=== PATIENT | female | born 1960 | race Caucasian/White ===

== ENCOUNTER 2017-08-18 18:04 | Emergency (ER) | payer OTHER ==
[2017-08-18 18:19] VITALS: BP 113/71; PULSE 93; TEMP 98.7; BMI 21.4
--- NOTE | 2017-08-18 18:29 | PDOC ---
History of Present Illness - General History Source: Patient Exam Limitations: No Limitations - History of Present Illness Initial Comments: 08/18/17 18:39 The patient is a 57 year old female, with a significant past medical history of UTI, Chronic back pain, bipolar, anxiety, depression, and psoriasis, who presents to the emergency department with urgency, frequency, fever and abdominal pain for the past month. She describes her abdominal pain as ranging from mild to moderate, without radiation or modifying factors. She states that her last UTI was roughly 1 year ago. She reports that she has been taking AZO urinary relief medication during this time frame with some alleviation of the symptoms. She states that her urine output is minimal and usually once every 30- 60 minutes. She describes her abdominal pain as constant and localized in the suprapubic region, rating it a 6/10 in severity, without radiation or modifying factors. She states that her last sexual intercourse was 8 months ago. She notes that her fever was as high as 101.5 degrees F. She also reports a headache since yesterday for which she took 3 Motrin pills, which relieved her pain. The patient denies chest pain, shortness of breath, headache and dizziness. Denies chills, nausea, vomit, diarrhea and constipation. She denies any vaginal discharge. LMP: 2-3 years ago Allergies: Penicillin Past surgical history: None reported Social history: Former smoker ( pack daily, quit 11 years ago). No alcohol or drug use reported <Michael Trujillo - Last Filed: 08/18/17 19:00> <Donn Angeles - Last Filed: 08/25/17 09:04> - General Chief Complaint: Urinary Problem Stated Complaint: URINARY SYMPTOMS Time Seen by Provider: 08/18/17 18:23 Past History <Michael Trujillo - Last Filed: 08/18/17 19:00> - Past Medical History Psychiatric Problems: Yes (ANXIETY,DEPRESSION,BIPOLAR) Other medical history: PSORIASIS - Suicide/Smoking/Psychosocial Hx Smoking History: Never smoked Hx Alcohol Use: No Drug/Substance Use Hx: No Substance Use Type: None <Donn Angeles - Last Filed: 08/25/17 09:04> - Past Medical History Allergies/Adverse Reactions: Allergies Allergy/AdvReac Type Severity Reaction Status Date / Time Penicillins Allergy Mild Rash Verified 08/18/17 18:25 Home Medications: Ambulatory Orders Clonazepam [Klonopin] 0 mg PO ASDIR 08/18/17 Dextroamphetamine/Amphetamine [Adderall 10 mg Tablet] 10 mg PO ASDIR 08/18/17 Lamotrigine [Lamictal] 0 mg PO ASDIR 08/18/17 Nitrofurantoin Monohyd/M-Cryst [Macrobid -] 100 mg PO BID #14 capsule 08/18/17 Phenazopyridine HCl [Pyridium] 100 mg PO TID #6 tablet 08/18/17 Secukinumab [Cosentyx Pen] 0 mg SQ ASDIR 08/18/17 Zonisamide 100 mg PO TID 08/18/17 Review of Systems - Review of Systems Able to Perform ROS?: Yes Comments:: 08/18/17 18:39 GENERAL/CONSTITUTIONAL: No fever or chills. No weakness. HEAD, EYES, EARS, NOSE AND THROAT: No change in vision. No ear pain or discharge. No sore throat.- CARDIOVASCULAR: No chest pain or shortness of breath RESPIRATORY: No cough, wheezing, or hemoptysis. GASTROINTESTINAL: (+) Abdominal pain. No nausea, vomiting, diarrhea or constipation. GENITOURINARY: (+) Urgency and frequency. MUSCULOSKELETAL: No joint or muscle swelling or pain. No neck or back pain. SKIN: No rash NEUROLOGIC: (+) Headache. No vertigo, loss of consciousness, or change in strength/sensation. ENDOCRINE: No increased thirst. No abnormal weight change HEMATOLOGIC/LYMPHATIC: No anemia, easy bleeding, or history of blood clots. ALLERGIC/IMMUNOLOGIC: No hives or skin allergy. <Michael Trujillo - Last Filed: 08/18/17 19:00> *Physical Exam - Vital Signs Last Vital Signs Temp Pulse Resp BP Pulse Ox 98.7 F 93 H 18 113/71 98 08/18/17 18:05 08/18/17 18:05 08/18/17 18:05 08/18/17 18:05 08/18/17 18:05 - Physical Exam Comments: 08/18/17 18:40 GENERAL: Awake, alert, and fully oriented, in no acute distress HEAD: No signs of trauma, normocephalic, atraumatic EYES: PERRLA, EOMI, sclera anicteric, conjunctiva clear ENT: Auricles normal inspection, hearing grossly normal, nares patent, oropharynx clear without exudates. Moist mucosa NECK: Normal ROM, supple, no lymphadenopathy, JVD, or masses LUNGS: No distress, speaks full sentences, clear to auscultation bilaterally HEART: Regular rate and rhythm, normal S1 and S2, no murmurs, rubs or gallops, peripheral pulses normal and equal bilaterally. ABDOMEN: Soft, nontender, normoactive bowel sounds. No guarding, no rebound. No masses EXTREMITIES : Normal inspection, Normal range of motion, no edema. No clubbing or cyanosis. NEUROLOGICAL: Cranial nerves II through XII grossly intact. Normal speech, normal gait, no focal sensorimotor deficits SKIN: Warm, Dry, normal turgor, no rashes or lesions noted. <Michael Trujillo - Last Filed: 08/18/17 19:00> - Vital Signs Last Vital Signs Temp Pulse Resp BP Pulse Ox 98.7 F 93 H 18 113/71 98 08/18/17 18:05 08/18/17 18:05 08/18/17 18:05 08/18/17 18:05 08/18/17 18:05 <Donn Angeles - Last Filed: 08/25/17 09:04> ED Treatment Course - LABORATORY CBC & Chemistry Diagram: 08/18/17 19:44 08/18/17 19:44 <Donn Angeles - Last Filed: 08/25/17 09:04> Medical Decision Making - Medical Decision Making 08/18/17 18:52 Patient complaining of "urinary symptoms" which consists mainly of urgency, frequency, and decreased volumes of urine. There is no dysuria, suprapubic or back pain. Symptoms have been persistent for over a month without medical evaluation. She has been self treating with Pyridium with partial relief. Symptoms are most consistent with atrophic vaginitis in a perimenopausal female. Other possibilities include overactive bladder, interstitial cystitis, UTI, other forms of vaginitis including yeast, Trichomonas, and bacterial. Urinalysis and urine culture should help to clarify. Signed out to Dr. Mayo pending results of urinalysis, further diagnosis and treatment. 7 PM. <Donn Angeles - Last Filed: 08/25/17 09:04> *DC/Admit/Observation/Transfer - Attestations Scribe Attestion: 08/18/17 18:40 Documentation prepared by Michael Trujillo, acting as medical research associate for Donn Stephens MD <Michael Trujillo - Last Filed: 08/18/17 19:00> <Donn Angeles - Last Filed: 08/25/17 09:04> Diagnosis at time of Disposition: Cystitis - Discharge Dispostion Disposition: HOME Condition at time of disposition: Stable - Prescriptions Prescriptions: Nitrofurantoin Monohyd/M-Cryst [Macrobid -] 100 mg PO BID #14 capsule Phenazopyridine HCl [Pyridium] 100 mg PO TID #6 tablet - Patient Instructions Additional Instructions: For the urinary tract infection take Macrobid 1 tablet twice a day for 7 days. For the symptoms take Pyridium 1 tablet 3 times a day for 2 days. Stay well hydrated. Return to the emergency department immediately with ANY new, persistent or worsening symptoms. Continue any medications as previously prescribed by your physician. You should follow up with your primary doctor as soon as possible regarding today's emergency department visit. . Please make sure your doctor reviews the results of your emergency evaluation. Thank you for coming to the Emergency Department today for your care. It was a pleasure to see you today. Please note that your evaluation is INCOMPLETE until you follow-up with your doctor.
[2017-08-18 18:59] LABS: PH,URINE 5.5 (4.5-8); URINE BILIRUBIN Negative (NEGATIVE); URINE GLUCOSE (UA) Negative (NEGATIVE); URINE KETONE Negative (NEGATIVE); URINE NITRITE Negative (NEGATIVE); URINE UROBILINOGEN 0.2 (0.2-1.0)
[2017-08-18 19:07] LABS: URINE BLOOD 1+ (NEGATIVE); URINE COLOR YELLOW; URINE LEUK ESTERASE 2+ (NEGATIVE); URINE PROTEIN 2+ (NEGATIVE)
[2017-08-18 19:08] LABS: URINE APPEARANCE CLOUDY
[2017-08-18] MEDS ORDERED: SODIUM CHLORIDE 1,000 ML IV ONE (19:24)
--- NOTE | 2017-08-18 19:34 | PDOC ---
*Physical Exam - Vital Signs Last Vital Signs Temp Pulse Resp BP Pulse Ox 98.7 F 93 H 18 113/71 98 08/18/17 18:05 08/18/17 18:05 08/18/17 18:05 08/18/17 18:05 08/18/17 18:05 ED Treatment Course - LABORATORY CBC & Chemistry Diagram: 08/18/17 19:44 08/18/17 19:44 - ADDITIONAL ORDERS Additional order review: Laboratory Results 08/18/17 18:30 Urine Color Yellow Urine Appearance Cloudy Urine pH 5.5 Ur Specific [place] 1.015 Urine Protein 2+ H Urine Glucose (UA) Negative Urine Ketones Negative Urine Blood 1+ H Urine Nitrite Negative Urine Bilirubin Negative Urine Urobilinogen 0.2 - RADIOLOGY Radiology Studies Ordered: Category Date Time Status ABDOMEN & PELVIS CT W/O CONTR [CT] Stat CT Scan 08/18/17 19:24 Ordered Progress Note - Progress Note Progress Note: Care of this patient was transferred to [place] from Dr. Santos at 1900 hrs. This is a 57-year-old female who comes in complaining of urinary dysuria and frequency. Patient said symptoms of been persistent times a couple of months. Patient does not have a primary care doctor or a [employer] as her doctors that she had does not take her insurance anymore. Patient had a urinalysis that does show a urinary tract infection however there is a slight component to it so I didn't get a CAT scan and labs to rule out a kidney stone and pyelonephritis. A pelvic exam was also done which shows normal vaginal mucosa and no evidence of atrophic vaginitis. Patient was treated with Macrobid and Pyridium for the cystitis. *DC/Admit/Observation/Transfer Diagnosis at time of Disposition: Cystitis - Discharge Dispostion Disposition: HOME Condition at time of disposition: Stable Admit: No - Prescriptions Prescriptions: Nitrofurantoin Monohyd/M-Cryst [Macrobid -] 100 mg PO BID #14 capsule Phenazopyridine HCl [Pyridium] 100 mg PO TID #6 tablet - Patient Instructions Additional Instructions: For the urinary tract infection take Macrobid 1 tablet twice a day for 7 days. For the symptoms take Pyridium 1 tablet 3 times a day for 2 days. Stay well hydrated. Return to the emergency department immediately with ANY new, persistent or worsening symptoms. Continue any medications as previously prescribed by your physician. You should follow up with your primary doctor as soon as possible regarding today's emergency department visit. . Please make sure your doctor reviews the results of your emergency evaluation. Thank you for coming to the Emergency Department today for your care. It was a pleasure to see you today. Please note that your evaluation is INCOMPLETE until you follow-up with your doctor.
[2017-08-18 19:35] LABS: URINE BACTERIA MANY /hpf (NEGATIVE); URINE WBC MANY (3-5)
[2017-08-18 19:55] LABS: BASOPHIL 1.3 % (0-2.0); EOSINOPHIL 0.2 % (0-4.5); MCH 27.6 pg (25.7-33.7); MCHC 34.3 g/dl (32.0-36.0); MEAN CELL VOLUME 80.5 fl (80-96); MEAN PLT VOLUME 8.8 fl (7.5-11.1); NEUTROPHILS 80.2 % (42.8-82.8); PLATELET COUNT 357 K/MM3 (134-434); RDW 13.7 % (11.6-15.6); WHITE BLOOD COUNT 8.9 K/mm3 (4.0-10.8)
[2017-08-18 20:08] LABS: ALBUMIN 4.2 g/dl (3.5-5.0); ALK PHOS 58 U/L (32-92); ANION GAP 7 (8-16); BILIRUBIN,TOTAL 0.6 mg/dl (0.2-1.0); CALCIUM 8.8 mg/dl (8.4-10.2); CO2 22 mmol/L (22-28); CREATININE 1.2 mg/dl (0.6-1.3); GLUCOSE,RANDOM 95 mg/dl (74-106); SGOT/AST 16 U/L (10-42); SGPT/ALT 9 U/L (10-40); TOT PROT 7.3 g/dl (6.4-8.3)
[2017-08-18] MEDS ORDERED: PHENAZOPYRIDINE HCL 100 MG TABLET (FP) PO ONE (21:11)
[2017-08-18] MEDS ORDERED: PHENAZOPYRIDINE HCL 100 MG TABLET (FP) ONE (21:13)
[2017-08-18] MEDS ORDERED: NITROFURANTOIN MACROCRYSTAL 50 MG CAPSULE (FP) PO SCH (21:15)
[2017-08-18] MEDS ORDERED: NITROFURANTOIN MACROCRYSTAL 50 MG CAPSULE (FP) ONE (21:19)
== END 2017-08-18 21:35 | disposition home or self-care (01) ==
LOC: FER 18:04
PROC: 3E0F7GC Introduction of Other Therapeutic Substance into Respiratory Tract, Via Natural or Artificial Opening (ICD-10-PCS; principal; 2017-08-18)
DX: R10.9 Unspecified abdominal pain (principal); N30.90 Cystitis, unspecified without hematuria; G89.29 Other chronic pain; F31.9 Bipolar disorder, unspecified; F41.8 Other specified anxiety disorders
CPT/HCPCS: 36415; 74176-TC; 80053; 81003; 81015; 85025; 87086; 87186; 96360; 99282-25

== ENCOUNTER 2022-09-29 06:34 | Emergency (ER) | payer OTHER, MEDICARE ==
[2022-09-29 06:47] VITALS: BP 153/83; PULSE 85; RESP 18; TEMP 98.1; BMI 19.4
[2022-09-29] MEDS ORDERED: IBUPROFEN 600 MG TABLET (FP) PO ONE ×2 (07:27→07:29)
[2022-09-29 07:52] LABS: HEMOGLOBIN 12.5 G/dL (10.7-15.3); MCH 28.4 pg (25.7-33.7); MCHC 32.8 g/dl (32.0-36.0); MEAN CELL VOLUME 86.6 fl (80-96); MEAN PLT VOLUME 8.7 fl (7.5-11.1); PLATELET COUNT 342.1 10^3/uL (134-434); RBC 4.39 10^6/uL (3.60-5.2); RDW 14.4 % (11.6-15.6)
[2022-09-29 08:00] LABS: ALBUMIN 3.6 g/dl (3.4-5.0); BILIRUBIN,TOTAL 0.4 mg/dl (0.2-1); CALCIUM 8.3 mg/dl (8.5-10); CREATININE 0.7 mg/dl (0.55-1.3); TOT PROT 6.6 g/dl (6.4-8.2)
== END 2022-09-29 08:34 | disposition home or self-care (01) ==
LOC: FER 06:34
DX: R20.8 Other disturbances of skin sensation (principal)
CPT/HCPCS: 36415; 80053; 80178; 85025; 99283-25